=== PATIENT | female | born 1990 | race Caucasian/White ===

== ENCOUNTER 2024-12-01 16:25 | Inpatient (IN) | payer OTHER, SELFPAY ==
[2024-12-01] VITALS (9 sets, daily range): BP systolic 113–156; BP diastolic 78–85; BMI 30.6; BMI 28.6
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
[2024-12-01] MEDS: REGLAN 10 MG IV (10:46)
[2024-12-01] MEDS: BENADRYL 25 MG IV (10:46)
[2024-12-01] MEDS: NSS 1000 IV ×3 (10:56→19:58)
[2024-12-01 11:10] LABS: Hematocrit 37.1 % (37.0-47.0); Hemoglobin 12.6 g/dL (12.0-16.0); Mean Corp Hgb Conc. 34.0 g/dL (33.0-37.0); Mean Corpuscular Volume 84.5 fL (81.0-99.0); Nucleated Red Blood Cells % 0 %; Platelet Count 523 10^3/uL (130-400); Red Cell Dist. Width 14.4 % (11.5-14.5)
[2024-12-01 11:24] LABS: HCG, Serum Qualitative Screen Negative
[2024-12-01 11:47] LABS: ALT (SGPT) 22 U/L (0-35); AST (SGOT) 23 U/L (14-36); Albumin 4.1 g/dl (3.5-5.0); Alkaline Phosphatase 184 U/L (38-126); Blood Urea Nitrogen 18 mg/dl (7-17); Calcium 9.3 mg/dl (8.4-10.2); Carbon Dioxide 22 mmol/L (22-30); Chloride 101 mmol/L (98-107); Estimated Creatinine Clearance 63 ml/min; Glucose 102 mg/dl (70-99); Lipase 107 U/L (23-300); Magnesium 2.3 mg/dl (1.6-2.3); Potassium 4.5 mmol/L (3.5-5.1); Sodium 135 mmol/L (135-145); Total Protein 7.8 g/dl (6.3-8.2); eGFR > 60.00
[2024-12-01 13:11] LABS: Urine Character Clear (Clear)
[2024-12-01 13:33] LABS: Urine Squamous Cell >30 /LPF (Few)
[2024-12-01 13:35] LABS: Urine Red Blood Cell 0-2 /HPF (0-2)
[2024-12-01 13:36] LABS: Urine White Cell >100 /HPF (0-5)
--- NOTE | 2024-12-01 14:20 | CONS.URO ---
Consultation
-
Date/Time Consultation Performed: 12/01/2024 1645
Requesting Provider: ED
Performing Provider: Олег
Reason for Consultation: Left Ureteral Stone with UTI
Medical History
History of Present Illness
ED note: '34yoF with a history of epilepsy and GERD presenting for evaluation of vomiting. Symptoms began 3 days ago. She was started on Mounjaro about 9 months ago for weight loss. She typically has some vomiting from this but symptoms have
never lasted this long before. She states she is unable to keep down any PO intake for the past few days. She has vomited approximately 5x in the past 24 hours. Last emesis was green in color. She reports hot/cold flashes after vomiting. She is
also having diffuse abdominal and back discomfort. '
no prior stone hx
Past Medical History
Past Medical History: Seizures
Social History
Tobacco: Non-smoker
Drug: None
Living: With Family
Family History
Family History: Reviewed & Not Pertinent
Allergies/Home Medications
Allergies
Allergy/AdvReac Type Severity Reaction Status Date / Time
ciprofloxacin Allergy Intermediate Hives Verified 12/01/24 09:35
clindamycin Allergy Intermediate Rash Verified 12/01/24 09:35
adhesive tape Allergy Mild Rash Verified 12/01/24 09:35
fluocortolone Allergy Unknown Unknown Verified 12/01/24 09:35
divalproex sodium Allergy Unknown Verified 12/01/24 09:35
nitrofurantoin (From Allergy Unknown Verified 12/01/24 09:35
Macrobid)
ondansetron (From Zofran) Allergy Nausea / Verified 12/01/24 09:35
Vomiting
Home Medications
�Medication �Instructions �Recorded �Confirmed �Type
lamotrigine 200 mg tablet 200 mg PO BID 12/01/24 12/01/24 History
(Lamictal)
norethindrone 1 mg-ethinyl 1 tab PO DAILY 12/01/24 12/01/24 History
estradiol 20 mcg (21)-iron 75 mg
(7) tablet (Aurovela Fe 1-20 (28))
tirzepatide 10 mg/0.5 mL 10 mg SC QWEEK 12/01/24 12/01/24 History
subcutaneous pen injector
(Henryunshira)
Physical Exam
Vital Signs
Vital Signs
Temp Pulse Resp BP Pulse Ox
98.7 F 92 16 117/81 99
12/01/24 09:30 12/01/24 11:56 12/01/24 11:56 12/01/24 12:00 12/01/24 12:00
Lab / Testing Results
Laboratory Results
12/01/24 10:45
12/01/24 10:45
Physical Exam
adult female on [facility]
General: No Apparent Distress
HEENT: Normocephalic
Respiratory: Non Labored Respirations
GI: Soft and Non Tender
Genito-urinary: Costovertebral Angle Tend (mild on left)
Skin: Warm
Neuro: Awake, Alert and Oriented
Psych: Calm and Intact Judgement
Assessment / Plan
-
Left Ureteral Stone: 7 mm, lower, obstructing
UTI/Sepsis
Left Renal stones
Plan: aggressive hydration and antibiosis; emergency surgery: cysto/dislodgement of stone/stent insertion
Data Reviewed
-
CT Scan: Image personally visualized and interpreted
Lab Data: Labs Reviewed
Old Records: Reviewed
[2024-12-01] MEDS: MAXIPIME 2000 MG IV (14:23)
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
[2024-12-01] MEDS: GENTAMICIN IV (16:00)
[2024-12-01] MEDS: GENTAMICIN 53.5 MG IV (16:17)
[2024-12-01] MEDS: LAMICTAL 200 MG PO (19:59)
[2024-12-01] MEDS: FLOMAX 0.4 MG PO (20:57)
[2024-12-01] MEDS: PEPCID 40 MG PO (20:57)
[2024-12-01] MEDS: STERILE WATER FOR INJECTION 20 ML IV (22:57)
[2024-12-01] MEDS: ROCEPHIN 2000 MG IV (22:57)
[2024-12-02] VITALS (10 sets, daily range): BP systolic 129–171; BP diastolic 84–117; BMI 28.6
[2024-12-02] MEDS: NSS 1000 IV (00:20)
[2024-12-02 05:53] LABS: Hematocrit 34.2 % (37.0-47.0); Hemoglobin 11.8 g/dL (12.0-16.0); Mean Corp Hgb Conc. 34.5 g/dL (33.0-37.0); Mean Corpuscular Volume 83.4 fL (81.0-99.0); Platelet Count 557 10^3/uL (130-400); Red Cell Dist. Width 14.3 % (11.5-14.5)
[2024-12-02 06:26] LABS: ALT (SGPT) 19 U/L (0-35); AST (SGOT) 17 U/L (14-36); Albumin 3.6 g/dl (3.5-5.0); Alkaline Phosphatase 153 U/L (38-126); Blood Urea Nitrogen 16 mg/dl (7-17); Calcium 9.0 mg/dl (8.4-10.2); Carbon Dioxide 20 mmol/L (22-30); Chloride 110 mmol/L (98-107); Estimated Creatinine Clearance 83 ml/min; Glucose 177 mg/dl (70-99); Potassium 4.8 mmol/L (3.5-5.1); Sodium 140 mmol/L (135-145); Total Protein 7.2 g/dl (6.3-8.2); eGFR > 60.00
--- NOTE | 2024-12-02 06:30 | PTCARENOTE ---
Cared for pt overnight. aaox3, NSR w PAC and occasionally SA. VSS. IVF running. Lactic negative. BCX sent. Denies pain. OOB to BRx1. Straining urine. IVabx. Will continue to monitor.
[2024-12-02] MEDS: FLOMAX 0.4 MG PO (08:49)
[2024-12-02] MEDS: LAMICTAL 200 MG PO (08:50)
--- NOTE | 2024-12-02 09:22 | W.PN.HOSP.TC ---
Addendum entered and electronically signed by Kaleb Thompson MD 12/02/24 14:27:
dc home with vantin 200mg bID x 14days
outpat Uro follow up
Original Note:
Today's Communication/Plan
-
Follow culture sensitivities
Discharged on oral antibiotics
Follow-up with urology
Assessment / Plan
Assessment / Plan
Impression
34-year-old female admitted with sepsis secondary to left distal ureteral stone associated with hydroureteronephrosis.
Assessment/plan
# Sepsis secondary to left-sided distal ureteral stone with moderate hydroureteronephrosis
Patient had cystoscopy and left ureteral stent placed yesterday on 12/01
Tolerated the procedure well, eating regular diet, no issues with urination
Urine culture-presumptive E. coli
Urology okay with discharging the patient with appropriate antibiotics for 14 days
Checked with microbiology, sensitivities would be back by tomorrow but patient insisting to go home today
Since patient responded well to ceftriaxone with decreased WBC count, plan to discharge on cefpodoxime 200 mg twice daily
Follow sensitivities tomorrow and check if the patient is sensitive to confirm
# Obesity-patient on Mounjaro-stopped by her weight management doctor, hold on discharge
# Mild elevation in total bilirubin and ALP-history of cholecystectomy
#Leukocytosis-patient states that it has always been high since her splenectomy
# Elevated platelet count-postsplenectomy
# History of cholecystectomy
#History of splenectomy
#Small umbilical hernia containing fat
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
#GERD-stable on famotidine
CODE STATUS-full code
DVT prophylaxis -sequential compression devices
Anticipated Discharge: Within 24 hours
Subjective/Interval History
-
Date of Service: December 02, 2024
Patient feeling fine, had ureteral stenting done yesterday, tolerating regular diet, noticed some mild hematuria but she feels like he period is coming
No fevers or chills
Objective Data
-
Labs:
Laboratory Results
12/02/24
05:42
WBC 8.8
Hgb 11.8 L
Hct 34.2 L
Plt Count 557 H
Sodium 140
Potassium 4.8
Chloride 110 H
Carbon Dioxide 20 L
BUN 16
Creatinine 0.8
Glucose 177 H
Calcium 9.0
Total Bilirubin 0.5
AST 17
ALT 19
Alkaline Phosphatase 153 H
Vital Signs:
Vital Signs
Temp Pulse Resp BP Pulse Ox
97.6 F 63 22 151/91 99
12/02/24 07:38 12/02/24 06:22 12/02/24 06:22 12/02/24 06:22 12/01/24 22:43
I&O
12/01/24 12/02/24 12/03/24
06:59 06:59 06:59
Intake Total 200 / 200
Output Total 1225 / 1225
Balance -1025 / -1025
Review of Systems
-
All other systems: Reviewed and negative
Physical Exam
-
General: Well Developed, Well Nourished and Comfortable
HEENT: Moist Mucous Membranes
Respiratory: Clear to Auscultation; Negative Wheezes, Rales or Rhonchi
Cardiac: Regular Rhythm and S1/S2
GI: Soft and Normal Bowel Sounds
Musculoskeletal: No Clubbing, No Cyanosis and No Edema
Skin: Warm and Dry
Neuro: Awake and AO x 3
Psych: Calm
--- NOTE | 2024-12-02 13:50 | W.DCSUMMARY ---
Discharge Summary
Discharge Data
Date of Admission: 12/01/24
Date of Discharge: 12/02/24
-
Pending Results: Yes
Additional Pending Results:
Urine culture sensitivities-12/03/2024
Hospital Course
Patient is a 34-year-old female with past medical history of epilepsy, stable on Lamictal and takes famotidine for GERD. She uses Mounjaro for weight loss and vomiting is a common symptom after her Mounjaro dose. She started vomiting after her
Mounjaro dose and initially thought that it was a reaction to the Mounjaro but then her vomiting got worse and worse, she started vomiting water and then she vomited greenish colored bilious vomitus along with severe back pain and she could not lie
down still. The next day the pain resolved but the vomiting persisted that prompted her to come to the ER. A CT scan done in the ER showed left-sided distal ureter stone with moderate hydroureteronephrosis. Urology was consulted who decided to do
cystoscopy and stenting of the left ureter. She received IV antibiotics and IV fluids in the ER and was taken to the OR for the procedure. She tolerated the procedure well and then she received IV fluids overnight. The next day she tolerated her
regular diet, fluids were stopped and she was vitally stable.
Urine culture showed presumptive E. coli growth, sensitivities pending. She did respond well to ceftriaxone as her WBC came down. She decided to go home on antibiotics. Discharged home on oral cefpodoxime 200 mg twice daily. Follow sensitivities
and follow-up with urology on outpatient basis.
Discharge Plan
-
Patient Disposition: Home (Routine Discharge)
Discharge Diagnosis/Procedures: Left Ureteral and Renal Calculi with Urosepsis, s/p emergency ureteral stenting
Condition: Fair
Diet: Regular
Activity: As tolerated
Driving Restrictions: As prior to admission
Bathing Restrictions: OK to Shower
Others Tests: Culture sensitivities back on 12/03/24, patient responded well to ceftriaxone, prescribing cefpodoxime
Follow sensitivities
Referrals:
Parker Denney MD [Active, Urology]
Referral Note: call [facility] to schedule 'Left Ureteroscopy, Stone Removal and Stent Exchange' on 12/10/2024
NONE,* [Family Provider, Internal Medicine] - in less than 1 week
Additional Discharge Medication Instructions: Cefpodoxime for 14 days to treat complicated UTI with left ureteral stent
Prescriptions:
New
cefpodoxime 200 mg tablet
200 mg PO Q12H 14 Days Qty: 28 0RF
Continued
lamotrigine [Lamictal] 200 mg Tablet
200 mg PO BID
famotidine [Pepcid] 40 MG Tablet
40 mg PO HS
Nexplanon 68 mg Implant
1 implant SUBDERMAL [id number]
PNV no.95-ferrous fumarate-FA [] 28 mg iron- 800 mcg Tablet
1 tab PO DAILY
Discontinued
Mounjaro 10 mg/0.5 mL Pen Injector
10 mg SC SA
Discharge Orders:
Discharge Patient (As Directed); Ordered 12/02/24
Ordered By: Shirley Rios
Discharge Date and Time
Print Language: PANAMANIAN
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
== END 2024-12-02 16:49 | disposition home or self-care (01) | DRG 659 ==
LOC: IMU 16:25
PROVIDERS: Physician Assistant; ADMITTING PHYSICIAN Hospitalist; CONSULT PHYSICIAN Specialist; EMERGENCY PHYSICIAN Emergency Medicine
PROC: 0T778DZ Dilation of Left Ureter with Intraluminal Device, Via Natural or Artificial Opening Endoscopic (ICD-10-PCS; 2024-12-01)
DX: N13.6 Pyonephrosis (principal); A41.9 Sepsis, unspecified organism; K21.9 Gastro-esophageal reflux disease without esophagitis; G40.A09 Absence epileptic syndrome, not intractable, without status epilepticus; E66.9 Obesity, unspecified; Z90.81 Acquired absence of spleen; Z90.49 Acquired absence of other specified parts of digestive tract; Z88.1 Allergy status to other antibiotic agents; Z80.0 Family history of malignant neoplasm of digestive organs; K42.9 Umbilical hernia without obstruction or gangrene; Z68.28 Body mass index [BMI] 28.0-28.9, adult
CPT/HCPCS: 74177; 76000; 80053; 81003; 81015; 83605; 83690; 83735; 84703; 85025; 85027; 87040; 87070; 87086; 87088; 96361; 96374; 96375; 99285; C2617; Q9967

== ENCOUNTER 2024-12-17 06:18 | Day surgery (SDC) | payer OTHER, SELFPAY ==
[2024-12-17] VITALS (10 sets, daily range): BP systolic 111–134; BP diastolic 63–88; BMI 28.5
[2024-12-17] MEDS: EMEND 40 MG PO (11:08)
[2024-12-17] MEDS: NORMOSOL-R/PLASMALYTE-A 1000 IV (11:38)
== END 2024-12-17 16:20 | disposition home or self-care (01) ==
LOC: SDS 06:18
PROVIDERS: ATTENDING PHYSICIAN Specialist
DX: N20.2 Calculus of kidney with calculus of ureter (principal)
CPT/HCPCS: 52356; 74018; 76000; 82365; C1894; C2617; J1335